=== PATIENT | female | born 1955 | race Two or more races ===

== ENCOUNTER 2017-10-17 10:39 | Emergency (ER) | payer OTHER ==
[~2017-10-17] VITALS: Ht 152.4 cm; Wt 53.1 kg
[~2017-10-17 10:39] MED LIST: ANTIVERT25 M1; ANTIVERT25 M1 PO; CATAFLAM50 MG PO; GLUCOPHAGE XR500 MG; GLUCOVANCE 5/501 TAB; HUMULIN N100 U/ML; KETO10TA2 PO; METFORMIN HCL1000 MG PO; MOTRIN800 MG PO; NORFLEX100MG PO; ORPH100T PO; PNEU16DI2; SEPTRA DS TABLE1 TAB PO; TRAMADOL HCL50 MG PO; ULTRACET PO; ZANTAC300 MG PO
== END 2017-10-17 19:53 | disposition home or self-care (01) ==
LOC: ER 10:39
DX: K52.9 Noninfective gastroenteritis and colitis, unspecified (principal); E11.9 Type 2 diabetes mellitus without complications

== ENCOUNTER 2017-11-25 07:27 | Outpatient (CLI) | payer OTHER | END 2017-11-25 07:36 | disposition home or self-care (01) | LOC: LAB 07:27 | DX: E78.2 Mixed hyperlipidemia (principal); E11.65 Type 2 diabetes mellitus with hyperglycemia; I10 Essential (primary) hypertension ==

== ENCOUNTER 2017-12-13 11:08 | Outpatient (CLI) | payer OTHER | END 2017-12-13 12:00 | disposition home or self-care (01) | LOC: NUCLEAR 11:08 | DX: M81.0 Age-related osteoporosis without current pathological fracture (principal) ==

== ENCOUNTER 2019-03-19 10:00 | Emergency (ER) | payer OTHER ==
[~2019-03-19] VITALS: Ht 152.4 cm; Wt 56.7 kg
[~2019-03-19 10:00] MED LIST changes: +DICLOFENAC POTA50 MG PO
[2019-03-19] MEDS ORDERED: JANUMET XR 1001 EACH (10:08)
== END 2019-03-19 14:47 | disposition home or self-care (01) ==
LOC: ER 10:00
DX: M54.5 Low back pain (principal)

== ENCOUNTER 2019-05-30 08:14 | Emergency (ER) | payer OTHER ==
[~2019-05-30] VITALS: Ht 152.4 cm; Wt 57.6 kg
[~2019-05-30 08:14] MED LIST changes: +JANUMET XR 1001 EACH
== END 2019-05-30 13:17 | disposition home or self-care (01) ==
LOC: ER 08:14
DX: M51.26 Other intervertebral disc displacement, lumbar region (principal); R91.1 Solitary pulmonary nodule

== ENCOUNTER 2019-10-02 12:13 | Emergency (ER) | payer OTHER ==
[~2019-10-02] VITALS: Ht 152.4 cm; Wt 57.2 kg
[2019-10-02] MEDS ORDERED: HUMALOG SUBCUTANEO (13:08)
== END 2019-10-02 14:00 | disposition home or self-care (01) ==
LOC: ER 12:13
DX: E11.65 Type 2 diabetes mellitus with hyperglycemia (principal)

== ENCOUNTER → 2020-07-14 07:12 | Outpatient (CLI) | payer OTHER ==
[~2020-07-14 07:12] MED LIST changes: +HUMALOG SUBCUTANEO
== END | disposition home or self-care (01) ==
LOC: LAB 07:12
PROVIDERS: ATTEND Internal Medicine Cardiovascular Disease
DX: I10 Essential (primary) hypertension (principal); E11.9 Type 2 diabetes mellitus without complications; E03.8 Other specified hypothyroidism; E78.2 Mixed hyperlipidemia; Z12.11 Encounter for screening for malignant neoplasm of colon; E55.9 Vitamin D deficiency, unspecified

== ENCOUNTER 2020-07-14 08:01 | Outpatient (CLI) | payer OTHER | END 2020-07-14 08:09 | disposition home or self-care (01) | LOC: MAMO-SONO 08:01 | PROVIDERS: ATTEND Internal Medicine Cardiovascular Disease | DX: Z12.31 Encounter for screening mammogram for malignant neoplasm of breast (principal); D24.1 Benign neoplasm of right breast; D24.2 Benign neoplasm of left breast ==

== ENCOUNTER 2020-07-17 11:13 | Outpatient (CLI) | payer OTHER | END 2020-07-17 11:33 | disposition home or self-care (01) | LOC: NUCLEAR 11:13 | PROVIDERS: ATTEND Internal Medicine Cardiovascular Disease | DX: M81.0 Age-related osteoporosis without current pathological fracture (principal); E55.9 Vitamin D deficiency, unspecified ==

== ENCOUNTER 2021-06-08 08:33 | Outpatient (CLI) | payer OTHER | END 2021-06-08 08:39 | disposition home or self-care (01) | LOC: RAD 08:33 | PROVIDERS: ATTEND Internal Medicine | DX: I10 Essential (primary) hypertension (principal); H25.012 Cortical age-related cataract, left eye; Z98.42 Cataract extraction status, left eye ==

== ENCOUNTER → 2021-06-24 09:41 | Outpatient (CLI) | payer OTHER | END | disposition home or self-care (01) | LOC: LAB 09:41 | PROVIDERS: ATTEND Internal Medicine Pulmonary Disease | DX: R91.1 Solitary pulmonary nodule (principal); A31.0 Pulmonary mycobacterial infection ==

== ENCOUNTER 2021-07-02 11:38 | Outpatient (CLI) | payer OTHER | END 2021-07-02 11:45 | disposition home or self-care (01) | LOC: TOM 11:38 | PROVIDERS: ATTEND Internal Medicine Pulmonary Disease | DX: R91.1 Solitary pulmonary nodule (principal) ==

== ENCOUNTER 2021-09-18 08:24 | Outpatient (CLI) | payer OTHER | END 2021-09-18 08:25 | disposition home or self-care (01) | LOC: NUCLEAR 08:24 | PROVIDERS: ATTEND Internal Medicine Cardiovascular Disease | DX: I87.2 Venous insufficiency (chronic) (peripheral) (principal) ==

== ENCOUNTER 2021-10-06 09:55 | Emergency (ER) | payer OTHER ==
[~2021-10-06] VITALS: Ht 152.4 cm; Wt 56.7 kg
[2021-10-06] MEDS ORDERED: LANTUS SOL100 UNIT/1 SQ (10:03)
== END 2021-10-06 13:56 | disposition designated cancer center or children's hospital (05) ==
LOC: ER 09:55
DX: R42 Dizziness and giddiness (principal); I63.9 Cerebral infarction, unspecified; E11.9 Type 2 diabetes mellitus without complications; Z79.4 Long term (current) use of insulin

== ENCOUNTER 2021-12-28 09:49 | Inpatient (IN) | payer OTHER ==
[~2021-12-28] VITALS: Ht 152.4 cm; Wt 56.7 kg
[~2021-12-28 09:49] MED LIST changes: +LANTUS SOL100 UNIT/1 SQ
[2021-12-29] MEDS ORDERED: LISINOPRIL10 MG (08:05)
[2021-12-29] MEDS ORDERED: PRAMIPEXOLE DI0.5 MG (08:05)
[2021-12-29] MEDS ORDERED: ASA325 MG (08:05)
[2021-12-29] MEDS ORDERED: ATORVASTATIN CA40 MG (08:05)
[2021-12-29] MEDS ORDERED: SERTRALINE HCL100 MG (08:06)
[2021-12-29] MEDS ORDERED: GLIMEPIRIDE1 M1 (08:06)
[2021-12-29] MEDS ORDERED: QUETIAPINE FUMA50 MG (08:06)
[2021-12-29] MEDS ORDERED: TRAZODONE HCL50 MG (08:06)
[2021-12-29] MEDS ORDERED: TRADJENTA5 MG (08:07)
[2021-12-29] MEDS ORDERED: JARDIANCE10 MG (08:07)
[2021-12-29] MEDS ORDERED: XARELTO20 MG (08:07)
[2022-01-16] MEDS ORDERED: XARELTO20 MG PO (15:24)
[2022-01-16] MEDS ORDERED: ATORVASTATIN CA40 MG PO (15:25)
[2022-01-16] MEDS ORDERED: LISINOPRIL10 MG PO (15:26)
[2022-01-16] MEDS ORDERED: TOPROL XL50 M1 PO (15:26)
[2022-01-16] MEDS ORDERED: TRAZODONE HCL50 MG PO (15:27)
[2022-01-16] MEDS ORDERED: QUETIAPINE FUMA25 MG PO (15:27)
[2022-01-16] MEDS ORDERED: ZOFRAN8 MG PO (15:28)
[2022-01-16] MEDS ORDERED: ULTRACET PO (15:29)
== END 2022-01-16 19:01 | disposition home or self-care (01) | DRG 180 ==
LOC: ER 09:49 → ICUI 17:59 → MEDJ 17:59
PROVIDERS: ADMIT Internal Medicine Hematology & Oncology; ATTEND Internal Medicine Hematology & Oncology
PROC: BW24YZZ Computerized Tomography (CT Scan) of Chest and Abdomen using Other Contrast (ICD-10-PCS; 2021-12-28)
PROC: 3E0F7SF Introduction of Other Gas into Respiratory Tract, Via Natural or Artificial Opening (ICD-10-PCS; 2021-12-28)
PROC: 0W9B30Z Drainage of Left Pleural Cavity with Drainage Device, Percutaneous Approach (ICD-10-PCS; principal; 2021-12-30)
PROC: 4A12X4Z Monitoring of Cardiac Electrical Activity, External Approach (ICD-10-PCS; 2021-12-30)
PROC: 02HV33Z Insertion of Infusion Device into Superior Vena Cava, Percutaneous Approach (ICD-10-PCS; 2021-12-31)
PROC: B54MZZZ Ultrasonography of Right Upper Extremity Veins (ICD-10-PCS; 2022-01-06)
PROC: 0JH63XZ Insertion of Tunneled Vascular Access Device into Chest Subcutaneous Tissue and Fascia, Percutaneous Approach (ICD-10-PCS; 2022-01-14)
DX: C34.32 Malignant neoplasm of lower lobe, left bronchus or lung (principal); J96.00 Acute respiratory failure, unspecified whether with hypoxia or hypercapnia; C78.00 Secondary malignant neoplasm of unspecified lung; C38.4 Malignant neoplasm of pleura; J91.0 Malignant pleural effusion; E44.0 Moderate protein-calorie malnutrition; I82.621 Acute embolism and thrombosis of deep veins of right upper extremity; N39.0 Urinary tract infection, site not specified; D63.0 Anemia in neoplastic disease; E86.0 Dehydration; B96.1 Klebsiella pneumoniae [K. pneumoniae] as the cause of diseases classified elsewhere; Z20.822 Contact with and (suspected) exposure to COVID-19; F43.22 Adjustment disorder with anxiety; R31.9 Hematuria, unspecified; E11.65 Type 2 diabetes mellitus with hyperglycemia; Z79.4 Long term (current) use of insulin; Z74.01 Bed confinement status